=== PATIENT | female | born 1985 | race Caucasian/White ===

== ENCOUNTER → 2019-12-16 14:22 | Outpatient (CLI) | payer OTHER, SELFPAY ==
--- NOTE | ~2019-12-16 | US_ITS ---
EXAMINATION: US OB transvaginal DATE: 12/16/2019 14:54 INDICATION: Spotting in . TECHNIQUE: Real-time transvaginal pelvic ultrasound was performed. COMPARISON: None. FINDINGS: The uterus measures 8.5 x 5.3 x 5.6 cm. There is an intrauterine gestational sac. The crown rum p length measures 2.0 cm, which correlates with an estimated gestational age of 8 weeks and 4 day(s) (+/-) 5 day(s). heart motion is not identified by M-mode Doppler, consistent with demise. The right ovary measures 4.6 x 2.1 x 2.8 cm. The left ovary measures 2.7 x 1.2 x 2.5 cm. There is no free fluid in the pelvis. IMPRESSION: 1. demise. Reviewed, dictated and finalized at location A. IMPRESSION: 1. demise.
== END ==
PROVIDERS: Visit Provider Nurse Practitioner
DX: O36.4XX0 Maternal care for intrauterine death, not applicable or unspecified (principal); Z3A.00 Weeks of gestation of pregnancy not specified
CPT/HCPCS: 76817

== ENCOUNTER 2019-12-17 09:13 | Outpatient (CLI) | payer OTHER, SELFPAY ==
[2019-12-18 14:25] LABS: SARS-CoV-2 RNA PCR Positive
== END 2019-12-17 09:14 | disposition home or self-care (01) ==
LOC: ANHCOVIDDT 09:13
PROVIDERS: PCP Internal Medicine; Visit Provider Obstetrics & Gynecology Gynecology
DX: U07.1 COVID-19 (principal)
CPT/HCPCS: 87635; C9803; U0003

== ENCOUNTER 2019-12-18 02:09 | Day surgery (SDC) | payer OTHER, SELFPAY ==
[2019-12-17 10:43] VITALS: BMI 22.6
--- NOTE | 2019-12-18 08:24 | P.PNAN_ITS ---
Anes - Initial Pre Proc Eval Procedure: Operation Date: 12/18/19 13:00 Proposed Procedures p Suction Dilation And Curettage - Janet Mayo MD Date/Time: 12/18/19 08:24 Surgeon: Janet Mayo MD Pre Op Diagnosis: Missed AB Patient Data Age: 34 Gender: F Height: 5 ft 4 in Weight: 59.87 kg Allergies Allergy/AdvReac Type Severity Reaction Status Date / Time No Known Allergies Allergy Unverified 12/17/19 10:44 Home Medications Medication Instructions Recorded Confirmed Type albuterol sulfate [ProAir HFA] 1 inh INHALATION QID PRN 12/17/19 12/18/19 History Patient hx anesthesia problems: none Family hx anesthesia problems: none [facility] Past Medical History Medical History (Updated 12/18/19 @ 08:24 by Rodo See MD) Asthma Social History Social History Smoking status: Never smoker Spiritual care concerns: No Anes - Eval Final PreProcedure Day of Procedure 12/18/19 08:24 Patient weight: normal Heart: regular rate and rhythm Lungs: clear to auscultation Airway: Mallampati scale class II Neurological: alert and oriented Last oral intake: >/= 8 hours ASA classification: II Emergent: no Anesthetic plan: proceed Anesthesia type and monitoring: general GIVS and standard monitoring Informed Consent: The patient's anesthetic plan and its attendant risks and benefits were discussed with the patient/family/POA. Questions were solicited and answers provided to the satisfaction of the patient/family/POA.
[2019-12-18] MEDS: LACTATED RINGERS 1,000 ML 30 ML IV CONT (11:45)
[2019-12-18] MEDS: ACETAMINOPHEN 500 MG TABLET 1000 MG PO (11:46)
[2019-12-18 11:51] VITALS: BP 102/72; PULSE 87; TEMP 37.4; O2SAT 100
--- NOTE | 2019-12-18 12:53 | PM.HPGS ---
History of Present Illness History of Present Illness Consent: Risks, benefits, and alternatives have been discussed and questions answered. Patient agrees to proceed with procedure. Chief complaint: Missed AB Narrative: Natalee Lyles is a 34 year old female with missed Ab. Reviewed options and patient wants to proceed with D&C. Risks of infection, bleeding, and perforation reviewed. Agrees to proceed PMF Past Medical History Medical History (Updated 12/18/19 @ 12:55 by Janet Mayo MD) Asthma Migraine (normal spontaneous vaginal delivery) Social History Social History Smoking status: Never smoker Spiritual care concerns: No Meds Home Medications and Allergies Home Medications Medication Instructions Recorded Confirmed Type albuterol sulfate [ProAir HFA] 1 inh INHALATION QID PRN 12/17/19 12/18/19 History Allergies Allergy/AdvReac Type Severity Reaction Status Date / Time No Known Allergies Allergy Unverified 12/17/19 10:44 Vital Signs Vital Signs - 24 hr 12/18/19 11:51 Temperature 99.3 F Pulse Rate 87 Blood Pressure 102/72 Pulse Oximetry 100 Exam Const: General: healthy appearing and alert Orientation/consciousness: patient oriented x3 Resp: Effort & Inspection: normal respiratory effort Auscultation: clear to auscultation bilaterally Cardio: Rate: regular rate Rhythm: regular rhythm GI: GI Palp: Yes Soft to palpation, No Tenderness to palpation present (GI) and No Palpable mass present : External Female Exam: normal external appearance Speculum Exam - Vagina: normal appearance of the vagina and normal vaginal discharge Speculum Exam - Cervix: normal appearance of the cervix Bimanual exam- vagina & uterus: uterine size normal and consistency normal Bimanual Exam- Adnexa, other: normal adnexae and No adnexal tenderness Neuro: General: patient oriented x3 Assessment and Plan Assessment and plan (1) Missed : Code(s): O02.1 - Missed Status: Acute Assessment and Plan: Plan to proceed with D&C.
[2019-12-18] MEDS: KETOROLAC 30 MG/ML VIAL (*BKC) 15 MG IV PUSH (13:15)
[2019-12-18 13:30] VITALS: BP 89/51; PULSE 78; RESP 12; O2SAT 96
--- NOTE | 2019-12-18 13:30 | PM.PROC ---
Procedure Note - Detailed Date of procedure: 12/18/19 Pre-op diagnosis: Missed AB Post-op diagnosis: same Procedure performed: Cervical dilation Description of procedure: The patient is taken to the operating room and placed in the dorsal lithotomy position. She is prepped and draped in usual sterile fashion. A bivalve speculum was placed in the vagina. The cervix is grasped on the anterior lip with a tenaculum and injected with 1% lidocaine. The uterus is sounded to 8-1/2cm. The cervix is serially dilated with Hegar 8. The 8mm curved suction curette is placed and there is no posterior wall firmness noted and the sound is placed. Uterine perforation is verified and all instruments are removed. Patient taken to recovery in stable condition. Anesthesia: MAC and local Surgeon: Janet Mayo MD Estimated blood loss (mL): 5 Drains: No Packing: No Pathology: none sent Complications: Other complications (uterine perforation) Condition: stable Disposition: PACU Findings: uterus 8.5 cm; uterine perforation during dilation
[2019-12-18 14:00] VITALS: BP 122/66; PULSE 77; RESP 16
[2019-12-18 14:30] VITALS: BP 109/59; PULSE 75; RESP 14
--- NOTE | 2019-12-18 16:26 | SUR.PHASEII ---
patient and Dr Mayo both informed Covid results back and were positive, patient advised to follow up with primary care provider.
== END 2019-12-18 14:50 | disposition home or self-care (01) ==
PROVIDERS: PCP Internal Medicine; Visit Provider Obstetrics & Gynecology Gynecology
PROC: (CPT 59820; principal; 2019-12-18 13:00)
DX: O02.1 Missed abortion (principal); J45.909 Unspecified asthma, uncomplicated; G43.909 Migraine, unspecified, not intractable, without status migrainosus
CPT/HCPCS: 59820; 36415; 84702; 85461; 87635; A9270; C9803; J1885; J2250; J2704; J3010; J7120; U0003

== ENCOUNTER → 2020-05-18 10:36 | Outpatient (CLI) | payer OTHER, SELFPAY ==
--- NOTE | ~2020-05-18 | US_ITS ---
US OB transvaginal DATE: 05/18/2020 11:05 INDICATION: Gestational age determination TECHNIQUE: Real-time imaging via transvaginal approach COMPARISON: 12/16/2019 obstetrical ultrasound FINDINGS: The uterus measures 7.3 centers height, 4.7 cm AP and 5.1 cm transverse dimension. Normally shaped gestational sac with normal surrounding hyperechogenicity consistent with normal decidual carmen ction. pole and yolk sac are identified. cardiac motion is detected. [place]-rump length measurement averages 0.66 cm, consistent with estimated gestational age of 6 weeks 4 days +/- 4 days, with ESTEFANI of 01/07/2021 compared to 01/09/2021 by LMP. Right ovary 3.5 x 2.5 x 3.1 cm, with a 1.5 cm cyst. Left ovary 2.3 x 1.0 x 3.0 cm. There is mild free fluid in the adnexal and cul-de-sac areas. IMPRESSION: Estimated gestational age of 6 weeks 4 days +/- 4 days; ESTEFANI by ultrasound is 01/07/2021 Reviewed, dictated and finalized at Location A. Reviewed, dictated and finalized at location B. GER TARGET IMPRESSION: Estimated gestational age of 6 weeks 4 days +/- 4 days; ESTEFANI by ultr asound is 01/07/2021
== END ==
PROVIDERS: Visit Provider Obstetrics & Gynecology Gynecology
DX: Z36.87 Encounter for antenatal screening for uncertain dates (principal); Z3A.01 Less than 8 weeks gestation of pregnancy
CPT/HCPCS: 76817

== ENCOUNTER → 2020-08-03 10:08 | Outpatient (CLI) | payer OTHER, SELFPAY ==
--- NOTE | ~2020-08-03 | US_ITS ---
EXAMINATION: US OB >= 14 weeks Fetus DATE: 08/03/2020 11:07 INDICATION: Second trimester anatomic survey TECHNIQUE: Real-time ultrasound of the pelvis was performed. COMPARISON: None. FINDINGS: There is a single living fetus in vertex presentation. The placenta is posterior and 2.9 cm from the internal cervical os. heart rate is 148 beats per minute (bpm). cardiac activity and fet al movement are noted. The amniotic fluid index is subjectively normal. The following anatomy was identified as normal: 4 chamber heart 3 vessel cord cord insertion kidneys urinary bladder stomach spine diaphragm ventricles cisterna magna cerebellum The following biometric data were obtained: Biparietal diameter (BPD): 3.9 cm; head circumference (HC): 14.7 cm; abdominal circumference (AC): 12 .2 cm; femur length (FL): 2.3 cm. These measurements are concordant. Estimated weight is 199 g +/- 29 g, which correlates with the 43rd percentile when 01/07/2021 is used as estimated date of delivery. As single measurements, these parameters are each equal to the following estimated gestational ages w ith ranges of +/- 2 standard deviations: BPD: 17 weeks 6 days ( 16 weeks 5 days - 19 weeks 0 days). HC: 17 weeks 6 days ( 16 weeks 5 days - 19 weeks 1 days). AC: 17 weeks 6 days ( 16 weeks 2 days - 19 weeks 4 days). FL: 17 weeks 0 days ( 15 weeks 5 days - 18 weeks 3 days). estimated gestational age based solely on measurements from this exam is 17 weeks 5 days +/- 1 weeks 2 days. IMPRESSION: 1. Single living fetus in vertex presentation. 2. Estimated weight is 199 g +/- 29 g, which correlates with the 43rd percentile when 01/07/2021 is used as estimated date of delivery. Reviewed, dictated and finalized at location A. IMPRESSION: 1. Single living fetus in vertex presentation. 2. Estimated weight is 199 g +/- 29 g, which correlates with the 43rd per centile when 01/07/2021 is used as estimated date of delivery.
== END ==
PROVIDERS: Visit Provider Obstetrics & Gynecology Gynecology
DX: Z36.9 Encounter for antenatal screening, unspecified (principal); Z3A.17 17 weeks gestation of pregnancy
CPT/HCPCS: 76805

== ENCOUNTER 2020-10-13 14:37 | Outpatient (RCR) | payer OTHER, SELFPAY ==
[2020-10-13 16:08] VITALS: BP 120/69; PULSE 90
== END 2021-01-11 23:59 | disposition home or self-care (01) ==
LOC: ANHOBOP 14:37
PROVIDERS: Visit Provider Obstetrics & Gynecology Gynecology
DX: O36.8120 Decreased fetal movements, second trimester, not applicable or unspecified (principal); Z3A.27 27 weeks gestation of pregnancy
CPT/HCPCS: 59025

== ENCOUNTER 2020-12-08 09:54 | Outpatient (CLI) | payer OTHER, SELFPAY | END 2020-12-08 10:58 | disposition home or self-care (01) | LOC: ANHOBOP 10:48 → ANHLDR 10:49 | PROVIDERS: Visit Provider Obstetrics & Gynecology Gynecology | DX: O42.90 Premature rupture of membranes, unspecified as to length of time between rupture and onset of labor, unspecified weeks of gestation (principal); Z3A.00 Weeks of gestation of pregnancy not specified | CPT/HCPCS: 59025; 84112; 99199 ==

== ENCOUNTER 2020-12-13 08:44 | Inpatient (IN) | payer OTHER, SELFPAY ==
[2020-12-13] VITALS (65 sets, daily range): BP systolic 96–141; BP diastolic 54–101; PULSE 64–205; RESP 18–20; TEMP 36.6–37.6; O2SAT 97–100; BMI 27.2
--- NOTE | 2020-12-13 08:13 | LDADM ---
This patient, Natalee Lyles, was admitted to Labor/Delivery/Recovery 105 on 12/13/20 at 08:44. Plans for labor, pain management and were discussed with patient. Patient/family oriented to hospital policies and general routines including ID bracelet, bed and alarms, visiting hours, pain management, procedures, bathroom and other care routines, personal items, smoking policy, room service/diet and guest tray routines, security routines, and visiting hours. Patient/Family are encouraged to report perceived risks to care and to ask questions if they do not understand what they are told or what they should do. See OBIX for further documentation.
[2020-12-13] MEDS: LACTATED RINGERS 1,000 ML 125 ML IV CONT ×2 (08:56→09:35)
[2020-12-13] MEDS: AMPICILLIN 2 GM/NS 100 ML 2 GM/100 ML BAG IVPB (08:57)
--- NOTE | 2020-12-13 09:29 | P.PNAN_ITS ---
Anes - Eval Pre Procedure Procedure: labor epidural Date/Time: 12/13/20 09:29 Surgeon: riana Pre Op Diagnosis: Leaking Fluid Patient Data Age: 35 Gender: F Height: 1.63 m Weight: 72 kg Last Vital Signs Pulse 87 12/13/20 09:15 BP 128/82 12/13/20 09:15 Allergies Allergy/AdvReac Type Severity Reaction Status Date / Time No Known Allergies Allergy Verified 12/13/20 08:54 Laboratory Tests 12/13/20 08:47 RPR Pending Patient hx anesthesia problems: none Family hx anesthesia problems: none [facility] Family History Family History (Updated 12/13/20 @ 09:06 by Lacey Shanks RN) Father Acute myocardial infarction Mother Multiple sclerosis Mother No problems noted. Social History Social History Smoking status: Never smoker Second hand tobacco smoke exposure: Yes Spiritual care concerns: No Exam Day of Procedure 12/13/20 09:29
[2020-12-13 09:37] LABS: Basophils Percent Auto 0.3 % (0.2-1.2); Eosinophils Absolute Auto 0.1 K/mm3 (0-0.3); Eosinophils Percent Auto 1.1 % (0-4.4); Hematocrit 38.5 % (37.0-47.0); Hemoglobin 12.7 g/dL (12.0-15.0); Immature Granulocyte Absolute 0.13 K/mm3 (0.00-0.031); Immature Granulocyte Percent A 1.3 % (0-0.5); Lymphocytes Absolute Auto 1.67 K/mm3 (0.9-3.2); Lymphocytes Percent Auto 16.3 % (18.3-44.2); Mean Corpuscular Volume 84.8 fl (80-100); Mean Platelet Volume 12.8 fl (7.4-10.4); Monocytes Absolute Auto 0.8 K/mm3 (0.1-0.6); Monocytes Percent Auto 7.3 % (2.6-8.5); Neutrophils Absolute Auto 7.5 K/mm3 (1.3-6.7); Neutrophils Percent Auto 73.7 % (45.5-73.1); Platelet Count Result 173 k/mm3 (150-375); Red Blood Count 4.54 M/mm3 (4.2-5.4); Red Cell Distribution Width 12.8 % (11.5-14.5); White Blood Count 10.2 K/mm3 (4.5-10.0)
--- NOTE | 2020-12-13 09:38 | WPDOBADMIT ---
Obstetrics - Admit Note Admission Note: record reviewed. No pertinent additions to the history and/or any subsequent changes in the physical findings that are not consistent with the expected course of the were found. Additions to the history and/or subsequent changes in the physical findings follow. Here at 36 4/7 wks with SROM in labor. Epidural being placed now. Continue expectant mgmt. FHTs reactive.
[2020-12-13] MEDS: OXYTOCIN 30 UNITS/NS 500 ML 30 UNITS/500 ML BAG 999 UNITS IV CONT (12:06)
--- NOTE | 2020-12-13 12:08 | PM.OBPRVD ---
OB - Delivery Note Procedure Delivery date: 12/13/20 Intrapartal events: None Induction method: none Delivery monitor: external FHT and external uterine Route of delivery: Laceration Description: None Specimen: No Quantitative Blood Loss (ml): 100 Anesthesia type: Epidural Disposition: floor Baby Date of : 12/15/20 Weeks of gestation at delivery: 36 Infant gender: Female presentation: vertex position: Right Occiput Anterior Placenta delivery description: Spontaneous cord vessel description: 3 Vessels score one minute: 9 score five minutes: 9
--- NOTE | 2020-12-13 12:10 | PM.OBDSVD ---
DS: Admitting Diagnosis Discharge Date 12/15/20 Admitting Diagnosis SROM in labor 36 4/ DS: Discharge Diagnosis Discharge Diagnosis (1) (normal spontaneous vaginal delivery): Code(s): O80 - Encounter for full-term uncomplicated delivery Status: Acute OB - DS: Summary OB Procedures : Ultrasound OB Procedures Intrapartum: Spontaneous Vag Delivery OB Procedures: : None Peripartum Data Infant Delivery Method: Natural Vaginal Laceration Description: None complications: none Status at Discharge Functional status at discharge: independent ambulation Overall status at discharge: patient is progressing back to baseline Time Spent with Patient Time attestation: Total time spent providing and/or coordinating discharge services: DS: Data Data Completed and Pending Labs on day of discharge: Labs from last 24 hours 12/13/20 12/13/20 12/13/20 08:47 08:47 08:47 WBC 10.2 H RBC 4.54 Hgb 12.7 Hct 38.5 MCV 84.8 MCH 28.0 MCHC 33.0 RDW 12.8 Plt Count 173 MPV 12.8 H Immature Gran % (Auto) 1.3 H Neut % (Auto) 73.7 H Lymph % (Auto) 16.3 L [place] % (Auto) 7.3 Eos % (Auto) 1.1 Baso % (Auto) 0.3 Lymph # (Auto) 1.67 [place] # (Auto) 0.8 H Eos # (Auto) 0.1 Baso # (Auto) 0.0 Abs Immat Gran (auto) 0.13 H Absolute Neuts (auto) 7.5 H Absolute Nucleated RBC 0.0 Nucleated RBC % 0.0 RPR Pending Blood Type A Positive Antibody Screen Negative Discharge Plan Discharge Attending physician on discharge: Janet Mayo Discharging Clinician: Janet Mayo Anticipated Discharge Date/Time: 12/15/20 12:11 Patient Disposition: Home, Self-Care Activity: may shower and pelvic rest Diet: regular Discharge Instructions: Education: Mom and Baby Guide Given to: Mother Follow-Up: Call your delivering provider's office for an appointment to be seen in: 6 Weeks Mom and baby should come to the [facility] for the follow-up appointment. Appointment Date/Time: Friday, December 18, 2020 at 11:00 am What to expect at your follow-up visit: Blood Pressure Check Physical Assessment Call [phone] if you are unable to keep your appointment time. BREAST CARE: * Wear a snug supportive bra. * For engorgement discomfort: Breast Feeding: * Apply warm moist washcloths * Express milk as needed to relieve engorgement * Wear loose clothing * For sore nipples: * Identify correct latch-on * Apply warm moist washcloths before and after nursing * Air dry nipples after nursing * May apply Lansinoh cream to nipples EPISIOTOMY/PERINEAL CARE: * Until bleeding stops, use your marga bottle after urinating * Change your pad frequently throughout the day * You may take sitz baths several times a day (fill your bathtub with warm water and soak for 20 minutes.) Do NOT bathe in the water * No tub baths until seen by your physician - You may shower ACTIVITY: * Rest as much as possible. * Do not exercise or lift anything heavier than your baby (such as laundry or other children.) * Avoid stairs or driving as much as possible. * Do not put anything into the vagina. No douching, tampons, or sexual activity until seen by physician. NOTIFY PHYSICIAN IF YOU HAVE ANY QUESTIONS OR IF ANY OF THE FOLLOWING SYMPTOMS OCCUR: * If your vaginal area becomes red, swollen, or more painful than what you have experienced in the hospital. * If your vaginal bleeding becomes foul smelling. * If your vaginal bleeding becomes more heavy than a period or if your bleeding changes from brownish-red to bright red. However, you may pass an occasional walnut-sized clot once or twice for the first week . * If you experience a sharp, shooting pain in your calves. * If you discover a hard, reddened area on your breast or if you experie
[2020-12-13] MEDS: OXYTOCIN 30 UNITS/NS 500 ML 30 UNITS/500 ML BAG 125 UNITS IV CONT (12:36)
--- NOTE | 2020-12-13 16:35 | PC.NURSE ---
Patient transferred to post room #279 per wheelchair. Support person present. Oriented to unit, room, information board, rooming in, admission packet and security measures. Patient verbalizes understanding.
[2020-12-14 04:49] VITALS: BP 105/69; PULSE 72; RESP 18; TEMP 37.2; O2SAT 98
[2020-12-14 04:53] LABS: Hematocrit 35.6 % (37.0-47.0); Hemoglobin 11.6 g/dL (12.0-15.0)
[2020-12-14 08:00] VITALS: BP 115/70; PULSE 80; RESP 98; TEMP 36.9
--- NOTE | 2020-12-14 09:00 | PC.NURSE ---
Mother called out for assist with feeding. Mother reports infant is eagerly feeding for most feds, mother has slight tenderness with feeding. This is mother's first time to breastfeed. is able to move tongue freely past gum ridge, both lips flange easily. Mother's nipples are inverted with intact with no redness, blisters or scabbing noted. Nipple care reviewed of lanolin after feedings, warm compresses as needed, gel pads provided and reviewed care and cleaning. Discussed establishing in the infant may be more difficult due to their immaturity, may be less alert, have less stamina, and have greater difficulty with latch, suck, and swallow. ?s feeding may impact mother?s milk supply, pumping may need to be initiated /continued until milk supply is well established. Observed mother putting infant to breast using cradle, with a shallow latch. Reviewed feeding cues, frequencies, duration of feedings, feeding elimination flow sheet, and signs of adequate intake. Demonstrated stimulation techniques to wake for feeding. Assisted with to breast. Reviewed positioning/alignment in cross cradle, holding breast in ?U? hold and guided asymmetrical latch on. Reviewed rational for each. able to latch correctly within a few attempts. Infant nursed eagerly with steady draws and occasional swallowing noted for bursts followed with long pausing. Reviewed signs of a correct latch, effective nursing and suck swallow ratio. was able to maintain latch without discomfort to mother. Suggested mother stimulate while feeding to increase stimulate, increase intake and to assist with maintaining deep latch. Demonstrated how to adjust latch more deeply while feeding if needed. Infant responded to stimulation with increased nursing. Instructed mother to call out for RN assistance if she is unable to latch for feeding or she has discomfort with nursing. Instructed feeding should be initiated three hours from start of last feeding or if feeding cues are noted before. Mother voiced understanding of information shared.
[2020-12-14 09:29] LABS: Rapid Plasma Reagin Non-Reactive (NonReactive)
--- NOTE | 2020-12-14 10:42 | WPDANLDPN2 ---
Anes-Prog Note L&D Date/Time: 12/14/20 10:42 Comfortable throughout: labor and delivery Neuraxial method: epidural Epidural/Spinal procedure site: clean & non-tender Neuro status: Neuro function grossly intact. Cardiovascular status: normal Respiratory status: normal Airway patency: baseline Mental status: baseline Post-Op hydration status: normal Vital Signs: Last Vital Signs Temp 36.9 C 12/14/20 08:00 Pulse 80 12/14/20 08:00 Resp 98 H 12/14/20 08:00 BP 115/70 12/14/20 08:00 Pulse Ox 98 12/14/20 04:49 Pain score (VAS): 0 Post-procedural complaints: none Patient feedback: Patient satisfied with anesthetic care.
[2020-12-14 11:36] VITALS: BP 109/69; PULSE 82; RESP 18; TEMP 36.4; O2SAT 97
[2020-12-14 20:09] VITALS: BP 120/78; PULSE 83; RESP 18; TEMP 36.8; O2SAT 97
[2020-12-15 07:35] VITALS: BP 119/76; PULSE 80; RESP 16; TEMP 37.2; O2SAT 97
--- NOTE | 2020-12-15 07:45 | PM.OBPNVD ---
OB - PN: Subj Subjective Date/time seen: 12/15/20 07:45 Patient comments: no complaints baby status: doing well OB - PN: Obj Data Labs CBC & Chem 7: 12/14/20 03:24 Labs: Laboratory Results - last 24 hr 12/13/20 08:47 RPR Non-reactive OB - PN A/P Plan day: 2 Plan: routine care, discharge home and follow up 6 weeks Time Spent With Patient Time: Total time spent is greater than 50% in coordination of care (as documented) at patient's floor/unit and/or counseling patient: Exam : Bimanual exam- vagina & uterus: other (Uterus firm, nt @U)
--- NOTE | 2020-12-15 08:40 | PC.NURSE ---
Mother is able to independently latch with appropriate positioning/alignment. She denies any nipple discomfort, is feeding as required and waking infant to feed if needed. Infant has had several effective feedings followed with supplementation in the past 24 hours, and is currently meeting outcomes for weight, output, jaundice and feeding frequencies. is eagerly feeding followed with supplementation by mother's choice. Mother states she will initiate pumping once home. Mother states she feels confident to continue current feeding plan at home. Mother has her own double electric pump for home use. Discussed increasing supplementation as infant requires to satisfactions. Reviewed paced feeding and suggested to stop when is satisfied, as long as is having required output. With increased supplementation infant may not want to feed for 4 hours. Mother will continue to pump on infant feeding schedule and will increase session to 20 minutes if pumping every 4 hours. Mother will offer EBM as available. Reviewed once mother?s milk is established and is effectively feeding may have increased intake with nursing. If is effective feeding with long draws and frequent swallowing noted , may be ready to decrease/discontinue supplementation. Advised not to discontinue supplement until ICP, Follow-Up RN or LC has a pre/post weighted evaluation of infant feeding. Reviewed transition to breast milk, signs of adequate intake, and engorgement/relief. Instructed to call ICP if intake/output less than required. Reviewed regular medications mother is taking. Information provided per Anali. Reviewed community resources on the [facility] website and in the Mom/Baby guide. Information on outpatient services provided. Mother has no further questions at this time.
[2020-12-15] MEDS: MULTIVIT/MIN/PREN/FOL AC/IRON TABLET 1 TAB PO (09:35)
[2020-12-15 09:45] VITALS: PULSE 80; RESP 16; O2SAT 97
[2020-12-18 11:40] VITALS: BP 114/72; PULSE 83; RESP 20; TEMP 37.1; O2SAT 100
== END 2020-12-15 12:20 | disposition home or self-care (01) | DRG 807 ==
LOC: ANHOBOP 08:44 → ANHLDR 08:44 → ANHOB2 16:43
PROVIDERS: Admitting Provider Obstetrics & Gynecology Gynecology; Visit Provider Obstetrics & Gynecology Gynecology
DX: O60.14X0 Preterm labor third trimester with preterm delivery third trimester, not applicable or unspecified (principal); Z37.0 Single live birth; Z3A.36 36 weeks gestation of pregnancy; O36.8330 Maternal care for abnormalities of the fetal heart rate or rhythm, third trimester, not applicable or unspecified
CPT/HCPCS: 36415; 85014; 85018; 85025; 86592; 86850; 86900; 86901; A9270; J0290; J2590; J2795; J7120

== ENCOUNTER → 2021-04-29 10:17 | Outpatient (CLI) | payer OTHER, SELFPAY ==
--- NOTE | ~2021-04-29 | US_ITS ---
EXAMINATION: US OB <= 14 weeks fetus DATE: 04/29/2021 10:38 INDICATION: Uncertain gestational dates TECHNIQUE: Real-time transabdominal obstetric ultrasound. FINDINGS: No prior studies for comparison. The uterus measures 13.6 x 6.5 x 8.8 cm. There is an intrauterine gestational sac, with pole id entified. The crown rump length measures 6.1 cm, which correlates with a estimated gestational age o f 12 weeks 4 days. heart tones are identified measuring 159 bpm. Placenta is posterior. There is a 2.4 cm corpus luteal cyst of the left ovary. Right ovary is unremarkable. IMPRESSION: 1. SL IUP with an EGA of 12 weeks, 4 days (EDC by current ultrasound of 11/07/2021). Reviewed, dictated and finalized at location B. 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 SL IUP with an EGA of 12 weeks, 4 days (EDC by current ultrasound of 022).
== END ==
PROVIDERS: Visit Provider Obstetrics & Gynecology Gynecology
DX: Z34.91 Encounter for supervision of normal pregnancy, unspecified, first trimester (principal); Z3A.12 12 weeks gestation of pregnancy
CPT/HCPCS: 76801

== ENCOUNTER 2021-09-30 11:57 | Outpatient (RCR) | payer OTHER, SELFPAY ==
[2021-09-29] MEDS: BETAMETHASONE SOD PHOS/ACETATE 30 MG/5 ML VIAL 12 MG IM (12:20)
[2021-09-30] MEDS: BETAMETHASONE SOD PHOS/ACETATE 30 MG/5 ML VIAL 12 MG IM (12:07)
== END 2021-11-11 10:36 | disposition home or self-care (01) ==
LOC: ANHOBOP 11:57
PROVIDERS: Visit Provider Obstetrics & Gynecology Gynecology
DX: O36.8990 Maternal care for other specified fetal problems, unspecified trimester, not applicable or unspecified (principal); Z3A.00 Weeks of gestation of pregnancy not specified
CPT/HCPCS: 96372; J0702

== ENCOUNTER 2021-10-10 04:12 | Outpatient (CLI) | payer OTHER, SELFPAY ==
[2021-10-10] VITALS (7 sets, daily range): BP systolic 98–135; BP diastolic 66–82; PULSE 78–91
== END 2021-10-10 06:00 | disposition home or self-care (01) ==
LOC: ANHOBOP 05:57 → ANHLDR 05:58
PROVIDERS: Visit Provider Obstetrics & Gynecology Gynecology
DX: O26.899 Other specified pregnancy related conditions, unspecified trimester (principal); Z3A.00 Weeks of gestation of pregnancy not specified
CPT/HCPCS: 99199

== ENCOUNTER 2021-10-18 15:39 | Outpatient (CLI) | payer OTHER, SELFPAY ==
--- NOTE | ~2021-10-18 | US_ITS ---
EXAMINATION: US OB follow up DATE: 10/18/2021 17:00 INDICATION: Size greater than dates. Third trimester. TECHNIQUE: Real-time ultrasound of the pelvis was performed. COMPARISON: Ultrasound 04/29/2021 FINDINGS: There is a single living fetus in vertex presentation. The placenta is anterior and fundal. he art rate is 155 beats per minute (bpm). The amniotic fluid index is 14.0, which is normal. The following biometric data were obtained: Biparietal diameter (BPD): 9.2 cm; head circumference (HC): 32.4 cm; abdominal circumference (AC): 31 .2 cm; femur length (FL): 7.0 cm. These measurements are concordant. Estimated weight is 2749 g +/- 412 g, which correlates with the 19th percentile when 11/06/21 is used as estimated date of delivery. As single measurements, these parameters are each equal to the following estimated gestational ages: BPD: 37 weeks 3 days. HC: 36 weeks 5 days. AC: 35 weeks 1 days. FL: 35 weeks 5 days. estimated gestational age based solely on measurements from this exam is 36 weeks 2 days +/- 2 weeks 4 days. IMPRESSION: 1. Single living fetus in vertex presentation. 2. Estimated weight is 2749 g +/- 412 g, which correlates with the 19th percentile when 11/06/21 is used as estimated date of delivery. Note that the first ultrasound on 04/29/2021 suggested an chris mated date of delivery of 11/07/2021. Reviewed, dictated and finalized at location A. IMPRESSION: 1. Single living fetus in vertex presentation. 2. Estimated weight is 2749 g +/- 412 g, which correlates with the 19th percentile when 11/06/21 is used as estimated date of delivery. Note that the fir st ultrasound on 04/29/2021 suggested an estimated date of delivery of 11/07/2021.
== END 2021-10-18 15:40 | disposition home or self-care (01) ==
PROVIDERS: Visit Provider Obstetrics & Gynecology Gynecology
DX: O36.63X0 Maternal care for excessive fetal growth, third trimester, not applicable or unspecified (principal); Z3A.36 36 weeks gestation of pregnancy
CPT/HCPCS: 76816

== ENCOUNTER 2021-10-24 21:58 | Inpatient (IN) | payer OTHER, SELFPAY ==
[2021-10-24] VITALS (18 sets, daily range): BP systolic 109–130; BP diastolic 54–96; PULSE 70–105; O2SAT 96–100; BMI 28.3
--- NOTE | 2021-10-24 21:58 | LDADM ---
This patient, Natalee Lyles, was admitted to Labor/Delivery/Recovery 105 on 10/24/21 at 21:58. Plans for labor, pain management and were discussed with patient. Patient/family oriented to hospital policies and general routines including ID bracelet, bed and alarms, visiting hours, pain management, procedures, bathroom and other care routines, personal items, smoking policy, room service/diet and guest tray routines, security routines, and visiting hours. Patient/Family are encouraged to report perceived risks to care and to ask questions if they do not understand what they are told or what they should do. See OBIX for further documentation.
[2021-10-24 23:08] LABS: Basophils Absolute Auto 0.1 K/mm3 (0.0-0.1); Basophils Percent Auto 0.5 % (0.2-1.2); Eosinophils Absolute Auto 0.1 K/mm3 (0-0.3); Hematocrit 35.7 % (37.0-47.0); Hemoglobin 11.4 g/dL (12.0-15.0); Immature Granulocyte Absolute 0.11 K/mm3 (0.00-0.031); Lymphocytes Absolute Auto 2.26 K/mm3 (0.9-3.2); Lymphocytes Percent Auto 20.8 % (18.3-44.2); Mean Corpuscular HGB Conc 31.9 g/dl (32-36); Mean Corpuscular Hemoglobin 26.2 pg (26-34); Mean Corpuscular Volume 82.1 fl (80-100); Mean Platelet Volume 12.7 fl (7.4-10.4); Monocytes Absolute Auto 0.8 K/mm3 (0.1-0.6); Monocytes Percent Auto 7.4 % (2.6-8.5); Neutrophils Absolute Auto 7.6 K/mm3 (1.3-6.7); Neutrophils Percent Auto 69.3 % (45.5-73.1); Platelet Count Result 191 k/mm3 (150-375); Red Blood Count 4.35 M/mm3 (4.2-5.4); Red Cell Distribution Width 14.3 % (11.5-14.5); White Blood Count 10.9 K/mm3 (4.5-10.0)
[2021-10-24] MEDS: LACTATED RINGERS 1,000 ML 125 ML IV CONT (23:09)
--- NOTE | 2021-10-24 23:25 | WPDANESEPP ---
Anes - Eval Pre Procedure Procedure: labor epidural Date/Time: 10/24/21 23:25 Surgeon: riana Preop Diagnosis: pain during labor Pre Op Diagnosis: SROM Patient Data Age: 36 Gender: F Height: 1.63 m Weight: 75 kg Last Vital Signs Pulse 105 H 10/24/21 22:45 BP 114/72 10/24/21 22:45 Allergies Allergy/AdvReac Type Severity Reaction Status Date / Time No Known Allergies Allergy Verified 10/15/21 12:33 Home Medications Medication Instructions Recorded Confirmed Type albuterol sulfate 90 mcg/actuation 1 inh inhalation QID PRN Shortness 12/17/19 10/24/21 History aerosol inhaler (ProAir HFA) Of Breath ergocalciferol (vitamin D2) 1,250 1,250 mcg PO WEEKLY 10/15/21 10/24/21 History mcg (50,000 unit) capsule (Vitamin D2) prenat.vits,shyanne,uwq-[id number]-xluru 1 tablet PO DAILY 10/15/21 10/24/21 History Laboratory Tests 10/24/21 10/24/21 23:03 23:03 WBC 10.9 K/mm3 H K/mm3 (4.5-10.0) RBC 4.35 M/mm3 M/mm3 (4.2-5.4) Hgb 11.4 g/dL L g/dL (12.0-15.0) Hct 35.7 % L % (37.0-47.0) MCV 82.1 fl fl (80-100) MCH 26.2 pg pg (26-34) MCHC 31.9 g/dl L g/dl (32-36) RDW 14.3 % % (11.5-14.5) Plt Count 191 k/mm3 k/mm3 (150-375) MPV 12.7 fl H fl (7.4-10.4) Immature Gran % (Auto) 1.0 % H % (0-0.5) Neut % (Auto) 69.3 % % (45.5-73.1) Lymph % (Auto) 20.8 % % (18.3-44.2) Gregg % (Auto) 7.4 % % (2.6-8.5) Eos % (Auto) 1.0 % % (0-4.4) Baso % (Auto) 0.5 % % (0.2-1.2) Lymph # (Auto) 2.26 K/mm3 K/mm3 (0.9-3.2) Gregg # (Auto) 0.8 K/mm3 H K/mm3 (0.1-0.6) Eos # (Auto) 0.1 K/mm3 K/mm3 (0-0.3) Baso # (Auto) 0.1 K/mm3 K/mm3 (0.0-0.1) Abs Immat Gran (auto) 0.11 K/mm3 H K/mm3 (0.00-0.031) Absolute Neuts (auto) 7.6 K/mm3 H K/mm3 (1.3-6.7) Absolute Nucleated RBC 0.0 K/mm3 K/mm3 (0.0-0.012) Nucleated RBC % 0.0 % % (0.0-0.2) RPR Pending Patient hx anesthesia problems: none Family hx anesthesia problems: none Results Review: All pre-operative results and documents have been reviewed as part of the pre-operative evaluation. [facility] Past Medical History Medical History (Updated 12/18/19 @ 12:55 by Janet Mayo MD) Asthma Migraine (normal spontaneous vaginal delivery) Family History Family History (Updated 10/15/21 @ 12:36 by Jaime Johnson RN) Father Prostate carcinoma Cerebrovascular accident Hypertension Mother Multiple sclerosis Other Patient's father is Social History Social History Smoking status: Never smoker Substance use: never Spiritual care concerns: No Exam Day of Procedure 10/24/21 23:25
[2021-10-25] VITALS (147 sets, daily range): BP systolic 90–139; BP diastolic 49–87; PULSE 63–116; RESP 16–18; TEMP 36.5–37.4; O2SAT 93–100
--- NOTE | 2021-10-25 07:44 | WPDOBADMIT ---
Obstetrics - Admit Note Admission Note: record reviewed. No pertinent additions to the history and/or any subsequent changes in the physical findings that are not consistent with the expected course of the were found. Additions to the history and/or subsequent changes in the physical findings follow. She presented to the L&D Unit on 10/24/21 after SROM of clear fluid at home.
[2021-10-25] MEDS: OXYTOCIN 30 UNITS/NS 500 ML 30 UNITS/500 ML BAG IV CONT (08:09)
[2021-10-25 09:26] LABS: Rapid Plasma Reagin Non-Reactive (NonReactive)
[2021-10-25] MEDS: OXYTOCIN 30 UNITS/NS 500 ML 30 UNITS/500 ML BAG 125 UNITS IV CONT (09:48)
--- NOTE | 2021-10-25 10:02 | PM.OBPRVD ---
OB - Delivery Note Procedure Delivery date: 10/25/21 Procedure: Delivery augmentation: Pitocin Delivery monitor: External FHT and External Uterine Route of delivery: Episiotomy description: None Laceration Description: None Specimen: Yes Quantitative Blood Loss (ml): 150 Anesthesia type: Epidural Disposition: Floor Complications: Retained placenta. Narrative: Patient presented to Labor and delivery with spontaneous rupture membranes, fluid was clear. She was having regular uterine contractions that were painful. She requested an epidural and 1 was placed. She progressed to 7-8 cm and then there was no cervical change on repeat exam. Pitocin was started at that time for augmentation. She quickly progressed to complete dilation and had great descent. CNM was called for delivery. Patient pushed with 1 contraction and delivered the head in a very controlled manner. There was good restitution and the anterior shoulder was then delivered. A compound presentation of the left hand and arm was present and the umbilical cord was noted to be wrapped around the left arm. The remainder of the infant was delivered and placed skin to skin. Gentle fundal massage and cord traction was applied. After 30 minutes of time the placenta was considered to be retained. Notified Dr. Ness of this. Discussed manual removal of the placenta with patient and her spouse. CNM attempted but was unable to remove the placenta manually. MD to bedside and placenta removed manually and intact. Ancef was ordered for infection prophylaxis. There was minimal blood loss. Patient tolerated this procedure well as her epidural was still infusing. Baby Date of : 10/25/21 Time of : 09:12 Weeks of gestation at delivery: 38 gender: Male Weight (pounds): 6 (3030 grams) Weight (ounces): 11 presentation: vertex position: Other (compound presentation of left arm. Umbilical cord wrapped around left arm/body) Placenta delivery description: Manual Removal (Retained placenta for >30 minutes. ) Cord Vessel Description: 3 Vessels score one minute: 8 score five minutes: 9
--- NOTE | 2021-10-25 10:10 | PM.DS ---
DS: Admitting Diagnosis Discharge Date 10/26/21 Admitting Diagnosis SROM, labor DS: Summary Hospital Course Reason for hospitalization: . Hospital Course: Uncomplicated Status at Discharge Functional status at discharge: independent ambulation Overall status at discharge: patient is progressing back to baseline Time Spent with Patient Time attestation: Total time spent providing and/or coordinating discharge services: Exam Narrative: Alert and oriented. Mood is pleasant and cooperative. Urinating without difficulty. Denies passing any large clots. Perineum with minimal edema. Const: General: no acute distress Orientation/consciousness: patient oriented x3 Limitations: no limitations Resp: Effort & Inspection: normal respiratory effort Auscultation: clear to auscultation bilaterally Cardio: Rate: regular rate GI: Inspection: normal to inspection : Other: Perineum intact Skin: General skin exam: normal color Neuro: General: patient oriented x3 Extrem: General: normal to inspection Psych: Appearance: grossly normal Mental Status: mental status grossly normal Affect: normal affect Thought process: Normal thought process present DS: Data Data Completed and Pending Labs on day of discharge: Labs from last 24 hours 10/24/21 10/24/21 10/24/21 23:03 23:03 23:03 WBC 10.9 H RBC 4.35 Hgb 11.4 L Hct 35.7 L MCV 82.1 MCH 26.2 MCHC 31.9 L RDW 14.3 Plt Count 191 MPV 12.7 H Immature Gran % (Auto) 1.0 H Neut % (Auto) 69.3 Lymph % (Auto) 20.8 [place] % (Auto) 7.4 Eos % (Auto) 1.0 Baso % (Auto) 0.5 Lymph # (Auto) 2.26 [place] # (Auto) 0.8 H Eos # (Auto) 0.1 Baso # (Auto) 0.1 Abs Immat Gran (auto) 0.11 H Absolute Neuts (auto) 7.6 H Absolute Nucleated RBC 0.0 Nucleated RBC % 0.0 RPR Non-reactive Blood Type A Positive Antibody Screen Negative Discharge Plan Discharge Attending physician on discharge: Janet Mayo Discharging Clinician: Korina Felix Anticipated Discharge Date/Time: 10/27/21 10:11 Patient Disposition: Home, Self-Care Activity: may shower Diet: as tolerated and regular Discharge Instructions: May continue Colace (stool softener) 1-2 times daily as needed for constipation, Tylenol 1000mg every 6-8 hours as needed for pain, and Ibuprofen 600mg every 6 hours as needed for pain. Continue vitamin and vitamin D. Patient Instructions: Antibiotic Form Patient Language: Welsh Stand Alone Forms: General Discharge Information Follow-up/Referrals: Korina Felix, CNM [Certified Nurse [employer]] - (6 week post visit) Discharge Medications: New norethindrone (contraceptive) [Ortho Micronor] 0.35 mg tablet 0.35 mg PO DAILY Qty: 1 11RF Continued albuterol sulfate [ProAir HFA] 90 mcg/actuation Hfa Aerosol Inhaler 1 inh INHALATION QID PRN (Reason: Shortness Of Breath) Label Comments: only as needed ergocalciferol (vitamin D2) [Vitamin D2] 1,250 mcg (50,000 unit) Capsule 1,250 mcg PO WEEKLY Rx Instructions: takes on Monday #2 Tablet 1 tablet PO DAILY Date of admission: 10/24/21 21:58 Primary Care Provider: PHYSICIAN,SEMICONDUCTOR PACKAGES SEALER Admitting Provider: Janet Mayo Attending physician on admission: Janet Mayo Condition: Stable
[2021-10-25] MEDS: ceFAZolin 2 GM/D5W 50 ML 2 GM/50 ML BAG IVPB (10:42)
--- NOTE | 2021-10-25 12:36 | PC.NURSE ---
Patient transferred to post room #283 via wheelchair. Support person present. Oriented to unit, room, information board, rooming in, admission packet and security measures. Patient verbalizes understanding.
--- NOTE | 2021-10-25 15:55 | PC.NURSE ---
Primary RN reported patient is a with a 10 month old infant at home and she is well independently.
[2021-10-26 03:54] VITALS: BP 102/56; PULSE 90; RESP 16; TEMP 36.5
[2021-10-26 04:33] LABS: Hematocrit 32.8 % (37.0-47.0); Hemoglobin 10.5 g/dL (12.0-15.0)
[2021-10-26 07:30] VITALS: BP 111/75; PULSE 82; RESP 16; TEMP 36.4; O2SAT 97
--- NOTE | 2021-10-26 07:47 | WPDANLDPN2 ---
Anes-Prog Note L&D Date/Time: 10/26/21 07:47 Comfortable throughout: labor and delivery Neuraxial method: epidural Epidural/Spinal procedure site: clean & non-tender Neuro status: Neuro function grossly intact. Cardiovascular status: normal Respiratory status: normal Airway patency: baseline Mental status: baseline Post-Op hydration status: normal Vital Signs: Last Vital Signs Temp 36.5 C 10/26/21 03:54 Pulse 90 10/26/21 03:54 Resp 16 10/26/21 03:54 BP 102/56 L 10/26/21 03:54 Pulse Ox 100 10/25/21 17:18 O2 Del Method Room Air 10/26/21 03:46 Pain score (VAS): 2 I/O: Intake & Output 10/25/21 10/25/21 10/26/21 15:59 23:59 07:59 Intake Total 1450 240 Output Total 650 Balance 800 240 Post-procedural complaints: none Patient feedback: Patient satisfied with anesthetic care.
--- NOTE | 2021-10-26 08:18 | PM.OBPNVD ---
OB - PN: Subj Subjective Date/time seen: 10/26/21 0720 Patient comments: no complaints and pain well controlled baby status: doing well Sylvester feeding status: breast and bottle feeding OB - PN: Obj Data Labs CBC & Chem 7: 10/26/21 03:06 Labs: Laboratory Results - last 24 hr 10/24/21 10/26/21 23:03 03:06 Hgb 10.5 L Hct 32.8 L RPR Non-reactive OB - PN A/P Plan day: 1 Plan: discharge home Comments: Desires discharge home today. Time Spent With Patient Time: Total time spent is greater than 50% in coordination of care (as documented) at patient's floor/unit and/or counseling patient: Review of Systems Review of Systems: All systems reviewed & are unremarkable except as noted in HPI and below Exam Narrative: Alert and oriented. Mood is pleasant and cooperative. Urinating without difficulty. Denies passing any large clots. Perineum with minimal edema. Const: General: no acute distress Orientation/consciousness: patient oriented x3 Limitations: no limitations Resp: Effort & Inspection: normal respiratory effort Auscultation: clear to auscultation bilaterally Cardio: Rate: regular rate GI: Inspection: normal to inspection Neuro: General: patient oriented x3 Extrem: General: normal to inspection Psych: Appearance: grossly normal Mental Status: mental status grossly normal Affect: normal affect Thought process: Normal thought process present
--- NOTE | 2021-10-26 10:14 | PC.NURSE ---
[phone] Introductions were made, opportunity to ask question, voice concerns, and inpatient/outpatient services provided. Mother led the conversation with her experience and plan to feed her infant so far and her ability to breastfeed and supplement her infant. Mother is feeding appropriately for growth of infant and understands stimulating to eat if needed. Infant has had appropriate feedings in the last 24 hours meets the outcomes for weight, output and jaundice at this time. Mother states she is confident to continue effectively and bottle feed her at home or when to call for assistance and denies any additional assistance or education at this time. Reinforced understanding of milk production, transition of milk, signs of adequate intake, prevention/relief of engorgement, responsive after visualizing feeding cues, the different methods of stimulating infant to breastfeed 2-3 hours after the start of the last feeding, community resources, medication information reviewed per [facility] and when to call a provider using the resource of the mom and baby guide/[facility] website. Mother voiced understanding of the education shared.
[2021-10-27 10:53] VITALS: BP 123/77; PULSE 80; RESP 20; TEMP 36.8; O2SAT 99
== END 2021-10-26 11:36 | disposition home or self-care (01) | DRG 807 ==
LOC: ANHLDR 10-25 10:12 → ANHOB2 10-25 12:56
PROVIDERS: Advanced Practice Midwife; Admitting Provider Obstetrics & Gynecology; Visit Provider Obstetrics & Gynecology Gynecology
DX: O32.6XX0 Maternal care for compound presentation, not applicable or unspecified (principal); Z37.0 Single live birth; Z3A.38 38 weeks gestation of pregnancy; O73.0 Retained placenta without hemorrhage; O69.82X0 Labor and delivery complicated by other cord entanglement, without compression, not applicable or unspecified
CPT/HCPCS: 36415; 84112; 85014; 85018; 85025; 86592; 86850; 86900; 86901; 88307; A9270; J0690; J2590; J2795; J7120

== ENCOUNTER 2024-05-24 08:35 | Outpatient (CLI) | payer OTHER, SELFPAY ==
--- NOTE | ~2024-05-24 | MMUS_ITS ---
EXAMINATION: MM diagnostic alex BI w mickey, US breast BI complete HISTORY: Right breast pain TECHNIQUE: Additional 3-D tomosynthesis images of the breasts were performed and synthetic 2-D images were generated. CAD analysis was submitted and interpreted. High resolution bilateral complete breas t ultrasound was performed. COMPARISON: None BREAST PARENCHYMAL COMPOSITION: Dense: The breasts are heterogeneously dense, which may obscure small masses FINDINGS: MAMMOGRAPHIC FINDINGS: There are no suspicious masses, calcifications or architectural distortion in either breast to sugges t malignancy. ULTRASOUND: Complete US of all 4 quadrants of the breast/s and retroareolar region was reviewed. Normal heterogen eous echotexture without suspicious mass. IMPRESSION: 1. No evidence for malignancy in either breast. 2. Routine yearly screening mammogram and regular clinical breast examination are recommended. BI-RADS Category 1: Negative Reviewed, dictated and finalized at location L. [facility]E [facility] IMPRESSION: 1. No evidence for malignancy in either breast. 2. Routine yearly screening mammogram and regular clinical breast examination a re recommended. BI-RADS Category 1: Negative
--- NOTE | ~2024-05-24 | US_ITS ---
EXAMINATION: US thyroid DATE: 05/24/2024 09:23 INDICATION: Thyroid nodule. TECHNIQUE: Multiple ultrasound images of the thyroid were obtained. COMPARISON: None. FINDINGS: The right thyroid lobe measures 5.8 x 1.9 x 1.2 cm. The left thyroid lobe measures 4.2 x 1.3 x 1.3 c m. In the left thyroid lobe, there is a 19 mm solid, isoechoic, wider than tall nodule with ill-defi oj margin without echogenic foci (TI-RADS TR3). In the left thyroid lobe, there is a 6 mm solid, hyp oechoic, wider than tall nodule with smooth margin without echogenic foci (TR4). In the right thyroid lobe, there is a 16 mm solid, isoechoic, wider than tall nodule with smooth margin without echogenic foci (TR3). IMPRESSION: 1. Multinodular goiter. Thyroid ultrasound is recommended in one year. Reviewed, dictated and finalized at location A. OPERATOR
== END 2024-05-24 08:36 | disposition home or self-care (01) ==
LOC: MICIMG 08:36
PROVIDERS: PCP Nurse Practitioner Adult Health; Visit Provider Nurse Practitioner
DX: N64.4 Mastodynia (principal); E04.2 Nontoxic multinodular goiter
CPT/HCPCS: 76536; 76641; 77062; 77066; G0279

== ENCOUNTER 2024-12-31 07:33 | Outpatient (CLI) | payer OTHER, SELFPAY ==
[2024-12-31 19:16] LABS: Hematocrit 44.0 % (37.0-47.0); Hemoglobin 13.8 g/dL (12.0-15.0); Mean Corpuscular HGB Conc 31.4 g/dl (32-36); Mean Corpuscular Hemoglobin 28.3 pg (26-34); Mean Corpuscular Volume 90.2 fl (80-100); Platelet Count Result 253 k/mm3 (150-375); Red Blood Count 4.88 M/mm3 (4.2-5.4); White Blood Count 6.7 K/mm3 (4.5-10.0)
[2024-12-31 20:04] LABS: Free T4 Free Thyroxine 1.11 ng/dL (0.78-2.19)
[2024-12-31 20:19] LABS: Thyroid Stimulating Hormone 10.200 uIU/mL (0.465-4.680)
== END 2024-12-31 07:34 | disposition home or self-care (01) ==
LOC: ANHBWCLAB 07:35
PROVIDERS: PCP Nurse Practitioner Adult Health; Visit Provider Nurse Practitioner Adult Health
DX: N92.0 Excessive and frequent menstruation with regular cycle (principal); E07.9 Disorder of thyroid, unspecified
CPT/HCPCS: 36415; 84439; 84443; 85027

== ENCOUNTER 2025-02-12 07:33 | Outpatient (CLI) | payer OTHER, SELFPAY ==
--- OUTSIDE RECORDS SUMMARY | 2025-02-12 07:37 | XMS_ITS | Clinical Summary ---
Author Organization [facility] Address [address] [place] [id number] Care Team Providers Care Chief Scientific Officer Name Role Phone No, Physician Primary Care Provider [phone] Allergies No known active allergies Medications levonorgestrel-e thinyl estrad (SEASONALE) 0.15 mg-30 mcg per tablet Active predniSONE (DELTASONE) 20 mg tabletIndication s:Contact dermatitis, unspecified contact dermatitis type, unspecified trigger Take 3 tab x 3 days, then 2 tabs x3 day, then 1 tab x3 days 18 tablet 8 Active Additional Information Patient not taking.Reported on 06/21/2019 azithromycin (ZITHROMAX) 250 mg tabletIndication s:Upper respiratory tract infection, unspecified type Take 2 tablets the first day, then 1 tablet daily for 4 days. 6 tablet 4 Active promethazine-DM (PROMETHAZINE-DM ) 1.25-3 mg/mL syrupIndications :Upper respiratory tract infection, unspecified type Take 5-10 mL by mouth 4 (four) times a day as needed for cough 120 mL 4 Active albuterol HFA (ProAir HFA) 90 mcg/actuation inhalerIndicatio ns:Mild intermittent asthma with exacerbation Inhale 2 puffs every 4 (four) hours as needed for shortness of breath 1 each 4 03/17/20 25 Active Active Problems Problem Noted Date Diagnosed Date Asthma 11/07/2017 Positive test for human papillomavirus (HPV) 10/2017 Hyperlipidemia 11/07/2017 Insomnia 11/07/2017 Medical History Medical History Date Comments Asthma Social History Tobacco Use Types Packs/Day Years Used Date Smoking Tobacco: Never Smokeless Tobacco: Never Alcohol Use Standard Drinks/Week Comments No 0 (1 standard drink = 0.6 oz pur e alcohol) Comments No Sex and Gender Information Value Date Recorded Sex Assigned at Not on file Legal Sex Female 3:55 AM BASTER HAND Gender Identity Not on file Sexual Orientation Not on file Last Filed Vital Signs Vital Sign Reading Time Taken Comments Blood Pressure 110/84 03/17/2024 10:04 AM BASTER HAND Pulse 126 03/17/2024 10:04 AM BASTER HAND Temperature 37 C (98.6 F) 03/17/2024 10:04 AM BASTER HAND Respiratory Rate 21 03/17/2024 10:04 AM BASTER HAND Oxygen Saturation 98% 03/17/2024 10:04 AM BASTER HAND Inhaled Oxygen Concentration - - Weight 60.8 kg (134 lb) 03/17/2024 10:04 AM BASTER HAND Height 162.6 cm (5' 4) 03/17/2024 10:04 AM BASTER HAND Body Mass Index 23 03/17/2024 10:04 AM BASTER HAND Plan of Treatment Health Maintenance Due Date Last Done Comments Cervical Cancer Screening 1985 Hepatitis C Screening 1985 DTaP/Tdap/Td Vaccine (1 - Tdap) 1996 Varicella Vaccines (1 of 2 - 13+ 2-dose series) 1998 Hepatitis B Screening 09/13/2003 Regular Well Visit/Exam 18-64 09/13/2003 Pneumococcal vaccine <65 (1 of 2 - PCV) 2004 HPV Vaccines (1 - 3-dose SCDM series) 2012 Depression Screening 11/07/2018 11/07/2017 Influenza Vaccine (#1) [address] [place] [id number] [employer] SIG [id number] [employer] SIG [id number] Care Teams Chief Scientific Officer Relationship Specialty Start Date End Date No, Physician PCP - General 10/08/16
--- OUTSIDE RECORDS SUMMARY | 2025-02-12 07:37 | XMS_ITS | Clinical Summary ---
Author Organization [facility] Address [address] [place] [phone] Phone Care Team Providers Care Jointer Machine Name Role Phone Unavailable Primary Care Provider Unavailabl e Social History Tobacco Use Types Packs/Day Years Used Date Smoking Tobacco: Never Assessed Comments Unknown Sex and Gender Information Value Date Recorded Sex Assigned at Not on file Legal Sex Female 2:53 PM UNIFIED COMMUNICATIONS ENGINEER Gender Identity Not on file Sexual Orientation Not on file Plan of Treatment Health Maintenance Due Date Last Done Comments DTAP/TDAP/TD VACCINES (1 - Tdap) 2004 HEPATITIS B VACCINES (1 of 3 - 19+ 3-dose series) 09/01 HPV/Cotest (21-29) 2006 HPV VACCINES (1 - 3-dose SCDM series) 2012 CERVICAL CANCER SCREENING 09/13/2015 HPV/Cotest (30-65) 09/13/2015 PAP SMEAR 09/13/2015 INFLUENZA VACCINE (#1) 2024 01/15/[address]
[2025-02-12 19:44] LABS: Thyroid Stimulating Hormone Reflex 4.130 uIU/mL (0.465-4.68)
[2025-02-13 02:18] LABS: Free T4 Free Thyroxine Reflex 1.13 ng/dL (0.78-2.19)
[2025-02-13 03:04] LABS: Total Triiodothyronine (T3) 1.40 NG/ML (0.82-1.58)
== END 2025-02-12 07:34 | disposition home or self-care (01) ==
PROVIDERS: PCP Nurse Practitioner Adult Health; Visit Provider Nurse Practitioner Adult Health
DX: E07.9 Disorder of thyroid, unspecified (principal)
CPT/HCPCS: 36415; 84439; 84443; 84480